=== PATIENT | male | born 1950 | race Caucasian/White ===

== ENCOUNTER 2024-07-02 15:55 | Inpatient (IN) ==
[2024-07-02] MEDS: ALBUT/IPRATROP 3MG/0.5MG NEB 3 ML VIAL NEB STA ×2 (16:22→17:39)
[2024-07-02 16:40] LABS: Basophils # (auto) 0.07 K/uL (0.00-0.20); Basophils % (auto) 0.4 %; Eosinophils # (auto) 0.16 K/uL (0.00-0.50); Hematocrit (blood only) 42.5 % (42.0-52.0); Hemoglobin 14.6 g/dl (14.0-18.0); Immature Granulocytes # (auto) 0.18 K/uL (0.01-0.20); Immature Granulocytes % (auto) 1.1 %; Lymphocytes # (auto) 2.56 K/uL (1.20-3.40); Lymphocytes % (auto) 15.5 %; Mean Corpuscular Hemoglobin 29.1 pg (25.0-34.0); Mean Corpuscular Hgb Conc 34.4 g/dL (32.0-36.0); Mean Corpuscular Volume 84.8 fL (80.0-100.0); Mean Platelet Volume 9.5 fL (9.4-12.4); Monocytes % (auto) 7.9 %; Neutrophils # (auto) 12.23 K/uL (1.40-6.50); Neutrophils % (auto) 74.1 %; Platelet Count 421 K/uL (130-400); RDW Coefficient of Variation 13.1 % (11.5-14.5); RDW Standard Deviation 40.4 fL (36.4-46.3); Red Blood Count 5.01 M/uL (4.70-6.10)
[2024-07-02 16:58] LABS: Albumin Globulin Ratio 0.9 (0.9-2); Albumin Level 3.8 gm/dl (3.4-5.0); BUN Creatinine Ratio 19.5 (10-20); Bilirubin,Total 0.7 mg/dl (0.2-1.0); Calcium 9.4 mg/dl (8.6-10.3); Creatinine Clr Calc Pharmacy 69.4 ml/min; Globulin 4.2 gm/dl (2.5-4.0); Potassium 4.1 mmol/L (3.5-5.1)
--- NOTE | 2024-07-02 16:58 | XRay Report ---
EXAM: Radiograph of the Chest 1 View INDICATION: Chest pain TECHNIQUE: Frontal view of the chest. COMPARISON: No relevant prior studies available. FINDINGS: Lungs and pleural spaces: There is generalized interstitial thickening with superimposed patchy groundglass infiltrates in both lungs particularly the upper lobes. No confluent consolidation. No pleural effusion or pneumothorax. Heart: Shape and configuration within normal limits allowing for technique. Mediastinum: Normal contour. Bones/joints: No fracture, erosion or dislocation. Soft tissues: No abnormality noted. No radiopaque foreign body noted. Tubes, lines and devices: Spinal stimulator terminates in the mid spine. Upper abdomen: No abnormality noted. IMPRESSION: Diffuse interstitial and groundglass infiltrates are nonspecific. Consider infectious pneumonitis including atypical and viral etiologies as well as developing alveolar edema. ACT 112: N/A Electronically signed by Eleonora Cerna 07-02-2024 4:58 PM
[2024-07-02 17:01] LABS: Troponin I High Sensitivity 5.3 pg/ml (0-20)
[2024-07-02] MEDS ORDERED: VANCOMYCIN CONSULT ACTIVE PRN ×2 (17:12→20:35)
[2024-07-02 17:13] LABS: INR 1.2 (0.9-1.1); Partial Thromboplastin Time 26 Seconds (21-31); Prothrombin Time 12.4 Seconds (9.0-12.0)
--- NOTE | 2024-07-02 17:17 | Emergency Department Note ---
Impression & Plan Pneumonia, Hypoxia ED Provider Note Diagnosis: Pneumonia, hypoxia Disposition: Admission CHIEF COMPLAINT: Recent pneumonia worsening symptoms HPI: Patient is a 73-year-old male presenting from home with worsening shortness of breath. Patient has been sick with productive cough for over 1 weeks time. Patient over the weekend went to outside emergency room diagnosed with pneumonia and started on oral antibiotics. Patient states that he has not been getting any better has been taking them as prescribed. Patient states he had a coughing fit that brought him to the ground because he became so short of breath. Patient denies active chest pain. Patient does not notice significant fevers. Patient denies any history of asthma or COPD and has been wheezing over the past day or 2. Patient states sick contacts with viral illnesses recently. Patient does not require oxygen at baseline and is requiring 2 L nasal cannula to keep him above 90% on my evaluation. PAST MEDICAL HISTORY: See Below PAST SURGICAL HISTORY: See Below SOCIAL HISTORY: See Below HOME MEDICATIONS: See Below ALLERGIES: See Below VITALS: See Below PHYSICAL EXAMINATION: GENERAL: Well appearing, well nourished, NAD, non-toxic. EYE EXAM: Normal conjunctiva. OROPHARYNX: Moist mucus membranes. Grossly normal dentition. NECK: Supple, LUNGS: Wheezing bilaterally HEART: NSR ABDOMEN: Abdomen soft, non-tender, normo-active bowel sounds, no masses, no rebound or guarding BACK: No CVA TTP. SKIN: No rashes and no bruising. UPPER EXTREMITIES: Upper extremities are grossly normal LOWER EXTREMITIES: Grossly normal, no edema. NEURO EXAM: A&O x3,, normal speech, moves all 4 extremities PSYCH: Cooperative MEDICAL DECISION MAKING: History obtained from: Patient, ER Course: Patient is a 73-year-old male presenting with complaint of cough and pneumonia for over 1 weeks time. Patient went to outside hospital emergency room multiple days prior and was started on Augmentin and doxycycline. Patient states that he has not been getting any better. Patient feels worsening shortness of breath. Patient requiring oxygen today which is not his baseline. Patient's EKG without signs of ischemia. Patient's chest x-ray shows pneumonia. Patient failed outpatient antibiotics and was started on broad-spectrum antibiotics here. Patient will be admitted for further treatment and evaluation. Labs (independently interpreted) are significant for: Leukocytosis Imaging results (independently interpreted): Chest x-ray with pneumonia EKG interpretation (independently interpreted): Normal sinus rhythm no ST segment elevation or depression Medications given: Cefepime, vancomycin, normal saline Consultants: Hospitalist Triage Nursing notes reviewed and agree them. Vital Signs: reviewed and remarkable for: Hypoxia Past Med/Surg History Problem List (Updated 07/02/24 @ 20:16 by Alex Dawn DO) Hypoxia (Acute) Pneumonia (Acute) Erectile dysfunction GERD with esophagitis Benign essential hypertension BPH associated with nocturia Right inguinal hernia Ventral hernia Insomnia (Acute) Sensorineural hearing loss of both ears Medical History Failed back surgical syndrome Surgical History S/P lumbar spinal arthrodesis Family History Mother Alzheimer disease Sister Cancer, Onset Age: 48 Father Deep vein thrombosis, Onset Age: 45 Pulmonary embolism Grandfather (Maternal) Sudden , Onset Age: 82 Grandmother (Maternal) Sudden , Onset Age: 50 Sister Alcoholism, Onset Age: 62 Social History Smoking Status: Never smoker Second Hand Exposure: No; Do You Dip or Chew Tobacco: No; Hx Alcohol Use: No Hx Substance Use: No Preferred Language: Andorran Communication Ability: Effective Hearing Ability: Use of Hearing Aid 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 marital status: Current Living Situation: Spouse Feels Safe at Home: Yes Childhood Exposure to Second-Hand Smoke: No Seatbelt Use: always Sunscreen Use: No Allergies Allergies Allergy/AdvReac Type Severity Reaction Status Date / Time No Known Allergies Allergy Unverified 07/02/24 14:54 Home Meds Home Medications Medication Instructions Recorded Confirmed tadalafil 5 mg tablet 5 mg PO DAILY PRN Other 07/02/24 07/02/24 tamsulosin 0.4 mg capsule 0.4 mg PO UD 07/02/24 07/02/24 Previous Rx's Medication Instructions Recorded magnesium glycinate 100 mg (as 100 mg PO .bedtime muscle cramps 03/11/24 glycinate) tablet (Mag Glycinate) #60 tabs amoxicillin 875 mg-potassium 1 tab PO BID 5 days #10 tabs 06/29/24 clavulanate 125 mg tablet doxycycline hyclate 100 mg capsule 100 mg PO BID 5 days #10 caps 06/29/24 Results & Data (ED) Vital Signs Vital Signs - 24 hr 07/02/24 16:08 07/02/24 16:08 07/02/24 16:31 Temperature 36.8 C Temperature Source Temporal Artery Scan Pulse Rate 81 Pulse Rate [Right Finger] Pulse Rate from SpO2 Sensor Respiratory Rate 22 Respiratory Effort / Characteristics Labored Non-Labored Respiratory Depth Normal Blood Pressure 140/83 Blood Pressure [Right Arm] Blood Pressure Mean 102 Blood Pressure Mean [Right Arm] Pulse Oximetry 91 91 Oxygen Delivery Method Room Air Room Air Oxygen Flow Rate Sepsis Recent Fever Within 48 Hours No Sepsis New/Unexplained Change in Mental Status No Sepsis Action Taken by Nursing No Action Required Oxygen Flow Rate - Titration Pulse Oximetry Post Tiitration 07/02/24 16:36 07/02/24 16:46 07/02/24 16:54 Temperature Temperature Source Pulse Rate 81 81 Pulse Rate [Right Finger] Pulse Rate from SpO2 Sensor 81 81 Respiratory Rate 13 30 H Respiratory Effort / Characteristics Respiratory Depth Blood Pressure 126/70 155/96 H Blood Pressure [Right Arm] Blood Pressure Mean 88 115 Blood Pressure Mean [Right Arm] Pulse Oximetry 96 89 L 91 Oxygen Delivery Method Room Air Oxygen Flow Rate 0 Sepsis Recent Fever Within 48 Hours Sepsis New/Unexplained Change in Mental Status Sepsis Action Taken by Nursing Oxygen Flow Rate - Titration 2 Pulse Oximetry Post Tiitration 95 07/02/24 17:06 07/02/24 17:33 07/02/24 18:00 Temperature Temperature Source Pulse Rate 80 74 Pulse Rate [Right Finger] 100 H Pulse Rate from SpO2 Sensor 81 74 Respiratory Rate 19 19 20 Respiratory Effort / Characteristics Respiratory Depth Blood Pressure 155/96 H 133/79 Blood Pressure [Right Arm] 121/98 Blood Pressure Mean 115 97 Blood Pressure Mean [Right Arm] 105 Pulse Oximetry 91 91 94 Oxygen Delivery Method Oxygen Flow Rate Sepsis Recent Fever Within 48 Hours Sepsis New/Unexplained Change in Mental Status Sepsis Action Taken by Nursing Oxygen Flow Rate - Titration Pulse Oximetry Post Tiitration 07/02/24 18:15 07/02/24 18:54 07/02/24 19:00 Temperature Temperature Source Pulse Rate 90 91 H 92 H Pulse Rate [Right Finger] Pulse Rate from SpO2 Sensor 90 96 H Respiratory Rate 27 H 27 H Respiratory Effort / Characteristics Respiratory Depth Blood Pressure 121/98 156/91 H Blood Pressure [Right Arm] Blood Pressure Mean 105 112 Blood Pressure Mean [Right Arm] Pulse Oximetry 88 L 91 Oxygen Delivery Method Oxygen Flow Rate Sepsis Recent Fever Within 48 Hours Sepsis New/Unexplained Change in Mental Status Sepsis Action Taken by Nursing Oxygen Flow Rate - Titration Pulse Oximetry Post Tiitration Laboratory Data 07/02/24 16:19 07/02/24 16:19 Lab Results 07/02/24 07/02/24 07/02/24 Range/Units 16:19 17:32 17:33 WBC 16.50 H (4.8-10.8) K/ul RBC 5.01 (4.70-6.10) M/uL Hgb 14.6 (14.0-18.0) g/dl Hct 42.5 (42.0-52.0) % MCV 84.8 (80.0-100.0) fL MCH 29.1 (25.0-34.0) pg MCHC 34.4 (32.0-36.0) g/dL RDW Std Deviation 40.4 (36.4-46.3) fL RDW Coeff of Susan 13.1 (11.5-14.5) % Plt Count 421 H (130-400) K/uL MPV 9.5 (9.4-12.4) fL Immature Gran % (Auto) 1.1 % Neut % (Auto) 74.1 % Lymph % (Auto) 15.5 % [place] % (Auto) 7.9 % Eos % (Auto) 1.0 % Baso % (Auto) 0.4 % Neut # (Auto) 12.23 H (1.40-6.50) K/uL Lymph # (Auto) 2.56 (1.20-3.40) K/uL [place] # (Auto) 1.30 H (0.11-0.59) K/uL Eos # (Auto) 0.16 (0.00-0.50) K/uL Baso # (Auto) 0.07 (0.00-0.20) K/uL Immature Gran # (Auto) 0.18 (0.01-0.20) K/uL PT 12.4 H (9.0-12.0) Seconds INR 1.2 H (0.9-1.1) APTT 26 (21-31) Seconds PTT Ratio 1.0 Sodium 136 (136-145) mmol/L Potassium 4.1 (3.5-5.1) mmol/L Chloride 102 (98-107) mmol/L Carbon Dioxide 25 (21-32) mmol/L Anion Gap 9 (3-11) BUN 22 (6-23) mg/dl Creatinine 1.13 (0.6-1.4) mg/dl Est Cr Clr Drug Dosing 69.4 ml/min eGFR 69.06 BUN/Creatinine Ratio 19.5 (10-20) Glucose 112 H (70-99(Fasting)) mg/dl Lactate (0.4-2.0) mmol/L Calcium 9.4 (8.6-10.3) mg/dl Total Bilirubin 0.7 (0.2-1.0) mg/dl AST 27 (13-39) U/L ALT 37 (7-52) U/L Alkaline Phosphatase 53 (34-104) U/L Troponin I High Sens 5.3 (0-20) pg/ml B-Natriuretic Peptide 48 (0-100) pg/ml Total Protein 8.0 (6.0-8.3) gm/dl Albumin 3.8 (3.4-5.0) gm/dl Globulin 4.2 H (2.5-4.0) gm/dl Albumin/Globulin Ratio 0.9 (0.9-2) Adenovirus (PCR) Not Detected (NotDetected) B. pertussis DNA (PCR) Not Detected (NotDetected) B.parapertussis DNA PCR Not Detected (NotDetected) C. pneumoniae DNA (PCR) Not Detected (NotDetected) Coronavirus OC43 (PCR) Not Detected (NotDetected) Coronavirus HKU1 (PCR) Not Detected (NotDetected) Coronavirus 229E (PCR) Not Detected (NotDetected) SARS-CoV-2 (PCR) Not Detected (NotDetected) Coronavirus NL63 (PCR) Not Detected (NotDetected) Human Metapneumovir PCR Not Detected (NotDetected) Influenza Type A (PCR) Not Detected (NotDetected) Influenza Type B (PCR) Not Detected (NotDetected) M. pneumoniae (PCR) Not Detected (NotDetected) Parainfluenza 1 (PCR) Not Detected (NotDetected) Parainfluenza 2 (PCR) Not Detected (NotDetected) Parainfluenza 3 (PCR) Not Detected (NotDetected) Parainfluenza 4 (PCR) Not Detected (NotDetected) RSV (PCR) Not Detected (NotDetected) Entero/Rhino (PCR) Not Detected (NotDetected) 07/02/24 Range/Units 17:44 WBC (4.8-10.8) K/ul RBC (4.70-6.10) M/uL Hgb (14.0-18.0) g/dl Hct (42.0-52.0) % MCV (80.0-100.0) fL MCH (25.0-34.0) pg MCHC (32.0-36.0) g/dL RDW Std Deviation (36.4-46.3) fL RDW Coeff of Susan (11.5-14.5) % Plt Count (130-400) K/uL MPV (9.4-12.4) fL Immature Gran % (Auto) % Neut % (Auto) % Lymph % (Auto) % [place] % (Auto) % Eos % (Auto) % Baso % (Auto) % Neut # (Auto) (1.40-6.50) K/uL Lymph # (Auto) (1.20-3.40) K/uL [place] # (Auto) (0.11-0.59) K/uL Eos # (Auto) (0.00-0.50) K/uL Baso # (Auto) (0.00-0.20) K/uL Immature Gran # (Auto) (0.01-0.20) K/uL PT (9.0-12.0) Seconds INR (0.9-1.1) APTT (21-31) Seconds PTT Ratio Sodium (136-145) mmol/L Potassium (3.5-5.1) mmol/L Chloride (98-107) mmol/L Carbon Dioxide (21-32) mmol/L Anion Gap (3-11) BUN (6-23) mg/dl Creatinine (0.6-1.4) mg/dl Est Cr Clr Drug Dosing ml/min eGFR BUN/Creatinine Ratio (10-20) Glucose (70-99(Fasting)) mg/dl Lactate 1.1 (0.4-2.0) mmol/L Calcium (8.6-10.3) mg/dl Total Bilirubin (0.2-1.0) mg/dl AST (13-39) U/L ALT (7-52) U/L Alkaline Phosphatase (34-104) U/L Troponin I High Sens (0-20) pg/ml B-Natriuretic Peptide (0-100) pg/ml Total Protein (6.0-8.3) gm/dl Albumin (3.4-5.0) gm/dl Globulin (2.5-4.0) gm/dl Albumin/Globulin Ratio (0.9-2) Adenovirus (PCR) (NotDetected) B. pertussis DNA (PCR) (NotDetected) B.parapertussis DNA PCR (NotDetected) C. pneumoniae DNA (PCR) (NotDetected) Coronavirus OC43 (PCR) (NotDetected) Coronavirus HKU1 (PCR) (NotDetected) Coronavirus 229E (PCR) (NotDetected) SARS-CoV-2 (PCR) (NotDetected) Coronavirus NL63 (PCR) (NotDetected) Human Metapneumovir PCR (NotDetected) Influenza Type A (PCR) (NotDetected) Influenza Type B (PCR) (NotDetected) M. pneumoniae (PCR) (NotDetected) Parainfluenza 1 (PCR) (NotDetected) Parainfluenza 2 (PCR) (NotDetected) Parainfluenza 3 (PCR) (NotDetected) Parainfluenza 4 (PCR) (NotDetected) RSV (PCR) (NotDetected) Entero/Rhino (PCR) (NotDetected) Administered Medications Discontinued Medications Albuterol (Albut/Ipratrop 3mg/0.5mg Neb 3 Ml Vial) 3 ml NEB NOW STA; Protocol Stop: 07/02/24 16:14 Last Admin: 07/02/24 16:22 Dose: 3 ml Documented By: FITO Albuterol (Albut/Ipratrop 3mg/0.5mg Neb 3 Ml Vial) 3 ml NEB NOW STA; Protocol Stop: 07/02/24 17:13 Last Admin: 07/02/24 17:39 Dose: 3 ml Documented By: STEVE Cefepime HCl (Maxipime 2000mg) 2,000 mg in 20 mls @ 5 mls/min IV NOW STA; Protocol Stop: 07/02/24 17:15 Last Admin: 07/02/24 17:48 Dose: 5 mls/min Documented By: STEVE Vancomycin HCl 2,000 mg/ (Sodium Chloride) 540 mls @ 200 mls/hr IV NOW ONE Stop: 07/02/24 19:53 Last Admin: 07/02/24 19:22 Dose: 200 mls/hr Documented By: STEVE Methylprednisolone (Methylprednisolone 125 Mg/2 Ml Vial) 125 mg IV NOW STA Stop: 07/02/24 17:13 Last Admin: 07/02/24 17:39 Dose: 125 mg Documented By: STEVE Imaging Data Radiologist's Impression: Chest X-Ray 07/02/24 16:13 EXAM: Radiograph of the Chest 1 View INDICATION: Chest pain TECHNIQUE: Frontal view of the chest. COMPARISON: No relevant prior studies available. FINDINGS: Lungs and pleural spaces: There is generalized interstitial thickening with superimposed patchy groundglass infiltrates in both lungs particularly the upper lobes. No confluent consolidation. No pleural effusion or pneumothorax. Heart: Shape and configuration within normal limits allowing for technique. Mediastinum: Normal contour. Bones/joints: No fracture, erosion or dislocation. Soft tissues: No abnormality noted. No radiopaque foreign body noted. Tubes, lines and devices: Spinal stimulator terminates in the mid spine. Upper abdomen: No abnormality noted. IMPRESSION: Diffuse interstitial and groundglass infiltrates are nonspecific. Consider infectious pneumonitis including atypical and viral etiologies as well as developing alveolar edema. ACT 112: N/A Electronically signed by Eleonora Cerna 07-02-2024 4:58 PM Discharge Plan Visit Data Chief Complaint: Respiratory Problems Stated Complaint: PNEUMONIA, DOC. CALLED ED Provider: Alex Dawn Discharge Problem: Pneumonia, Hypoxia Forms Stand Alone Forms: My [facility] [place] [employer] Prescriptions Prescriptions: No Action amoxicillin-pot clavulanate 875-125 mg tablet 1 tab PO BID 5 Days Qty: 10 0RF Rx Instructions: [facility] ER 06/27-06/28/24 doxycycline hyclate 100 mg capsule 100 mg PO BID 5 Days Qty: 10 0RF Rx Instructions: [facility] ER 06/27-06/28/24 Mag Glycinate 100 mg tablet 100 mg PO .bedtime Qty: 60 1RF Rx Instructions: otc unable to verify tamsulosin 0.4 mg capsule 0.4 mg PO UD Rx Instructions: 0.4 mg po daily. last filled 04/30 30 day supply tadalafil 5 mg tablet 5 mg PO DAILY PRN (Reason: Other) Rx Instructions: 5 mg orally w intercourse. May repeat if ineffective; last filled 03/12 36 day supply Referrals Referrals: Iraj Nelson MD [Physician] -
[2024-07-02] MEDS: methylPREDNISolone 125 MG/2 ML VIAL IV STA (17:39)
[2024-07-02] MEDS: CEFEPIME 2000MG 2,000 MG/20 ML SYR IV STA (17:48)
[2024-07-02 18:33] LABS: Adenovirus PCR Not Detected (NotDetected); Bordetella parapertussis PCR Not Detected (NotDetected); Bordetella pertussis PCR Not Detected (NotDetected); Chlamydia pneumoniae PCR Not Detected (NotDetected); Coronavirus 229E PCR Not Detected (NotDetected); Coronavirus CoV-2 (COVID19)PCR Not Detected (NotDetected); Coronavirus HKU1 PCR Not Detected (NotDetected); Coronavirus NL63 PCR Not Detected (NotDetected); Coronavirus OC43PCR Not Detected (NotDetected); Human Metapneumovirus PCR Not Detected (NotDetected); Influenza A PCR Not Detected (NotDetected); Influenza B PCR Not Detected (NotDetected); Mycoplasma pneumoniae PCR Not Detected (NotDetected); Parainfluenza Virus 1 PCR Not Detected (NotDetected); Parainfluenza Virus 2 PCR Not Detected (NotDetected); Parainfluenza Virus 3 PCR Not Detected (NotDetected); Parainfluenza Virus 4 PCR Not Detected (NotDetected); Respiratory Syncytial VirusPCR Not Detected (NotDetected); Rhinovirus/Enterovirus PCR Not Detected (NotDetected)
[2024-07-02] MEDS: VANCOMYCIN HCL 2,000 MG in SODIUM CHLORIDE 0.9% 500 ML IV ONE (19:22)
[2024-07-02] MEDS ORDERED: ACETAMINOPHEN 325 MG TAB PO PRN (20:40)
[2024-07-02] MEDS ORDERED: ALBUTEROL 0.083% NEBU SOLN 3 ML VIAL NEB PRN (20:45)
--- NOTE | 2024-07-02 20:53 | History & Physical Report ---
Date of Service July 02, 2024 Assessment & Plan (1) Pneumonia: Plan: Assessment: 1. Bilateral multifocal pneumonia by chest x-ray. Failed outpatient antibiotic treatment with doxycycline and Augmentin. Sputum cultures ordered. Noncontrast CT of the chest has been ordered to further delineate the patient's pulmonary pathology given his 2-week illness and felt improvement. This CAT scan result is pending at the time of this dictation. Will continue vancomycin and cefepime. Nebulizer treatments. Respiratory bio fire respiratory viral panel was negative. 2. Hypoxemia. 88% on room air. Now 91% on 2 L. 3. BPH. Continue home medication. 4. Leukocytosis secondary to infectious process. Repeat in the a.m. and monitor. 5. Erectile dysfunction by history. 6. Borderline hypertension this evening 156/91. I do not appreciate where he is treated for this chronically. Will monitor and introduce oral medication if necessary. 7. GERD by history. 8. History of presbycusis. Stable. Plan: As discussed above. Please refer to orders for further planning. History of Present Illness Chief Complaint: Shortness of breath, pneumonia, failed outpatient antibiotic treatment. Primary Care Provider: MARIA GUADALUPE Rao This is a pleasant 73-year-old male who was in the ER approximately a week ago. Diagnosed with pneumonia. Started on Augmentin and doxycycline. He has not improved in fact been getting worse. Saw his PCP today with increasing shortness of breath and productive cough. He presented the ER today for further evaluation and treatment. Laboratory studies showed a white count of 16,000. Other labs are fairly unremarkable. Respiratory viral bio fire panel was negative. Chest x-ray showed multifocal pneumonia. Course emergency department she is IV vancomycin IV cefepime. We are notified to meet the patient further evaluation and treatment for his community-acquired pneumonia with failed outpatient oral antibiotic treatment. Allergies Allergy/AdvReac Type Severity Reaction Status Date / Time No Known Allergies Allergy Unverified 07/02/24 14:54 Home Medications Medication Instructions Recorded Confirmed Type magnesium glycinate 100 mg (as 100 mg PO .bedtime muscle cramps 03/11/24 07/02/24 Rx glycinate) tablet (Mag Glycinate) #60 tabs amoxicillin 875 mg-potassium 1 tab PO BID 5 days #10 tabs 06/29/24 07/02/24 Rx clavulanate 125 mg tablet doxycycline hyclate 100 mg capsule 100 mg PO BID 5 days #10 caps 06/29/24 07/02/24 Rx tadalafil 5 mg tablet 5 mg PO DAILY PRN Other 07/02/24 07/02/24 History tamsulosin 0.4 mg capsule 0.4 mg PO UD 07/02/24 07/02/24 History Past Med/Surg History Problem List (Updated 07/02/24 @ 20:16 by Alex Dawn DO) Hypoxia (Acute) Pneumonia (Acute) Erectile dysfunction GERD with esophagitis Benign essential hypertension BPH associated with nocturia Right inguinal hernia Ventral hernia Insomnia (Acute) Sensorineural hearing loss of both ears Medical History Failed back surgical syndrome Surgical History S/P lumbar spinal arthrodesis Family History Mother Alzheimer disease Sister Cancer, Onset Age: 48 Father Deep vein thrombosis, Onset Age: 45 Pulmonary embolism Grandfather (Maternal) Sudden , Onset Age: 82 Grandmother (Maternal) Sudden , Onset Age: 50 Sister Alcoholism, Onset Age: 62 Social History Smoking Status: Never smoker Second Hand Exposure: No; Do You Dip or Chew Tobacco: No; Hx Alcohol Use: No Hx Substance Use: No Preferred Language: Welsh Communication Ability: Effective Hearing Ability: Use of Hearing Aid 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 Physical Exam Physical Exam: In General: In general very pleasant 73-year-old male who is alert and oriented x 3 at the time my exam he is accompanied by his at the time my examination. 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 His cough and shortness of breath and breathing has worsened as described above. He is comfortable on his 2 L of oxygen nasal cannula at this time. HEENT: Normocephalic atraumatic pupils are equal round and reactive to light bilaterally. No scleral icterus no conjunctival injection external auditory canals are patent septum is in the midline nose is without discharge oral mucosa is pink and moist without lesion. NECK: Supple no rigidity no lymphadenopathy no thyromegaly no carotid bruits no JVD no masses. HEART: Regular rate and rhythm I do not appreciate any ectopy or rub. No murmur. LUNGS: Coarse bilaterally with bilateral rhonchi and bilateral expiratory wheezing. ABDOMEN: Soft nontender, no rebound, no peritoneal signs, positive bowel sounds, no appreciable organomegaly. EXTREMITIES: Intact, no peripheral cyanosis, clubbing or edema. Strength is 5 out of 5 in extremities x4. NEUROLOGICAL: Other than severe presbycusis, cranial nerves II through XII are grossly intact with no focal deficit elicited upon examination. Results & Data Results & Data Vital Signs (Past 12 Hours) Vital Signs Temp Pulse Pulse Resp BP BP Pulse Ox 07/02/24 19:00 92 H 27 H 156/91 H 91 07/02/24 18:54 91 H 07/02/24 18:15 90 27 H 121/98 88 L 07/02/24 18:00 100 H 20 121/98 94 07/02/24 17:33 74 19 133/79 91 07/02/24 17:06 80 19 155/96 H 91 07/02/24 16:54 81 30 H 155/96 H 91 07/02/24 16:46 89 L 07/02/24 16:36 81 13 126/70 96 07/02/24 16:31 91 07/02/24 16:08 36.8 C 81 22 140/83 91 O2 Del Method O2 Flow Rate 07/02/24 19:00 07/02/24 18:54 07/02/24 18:15 07/02/24 18:00 07/02/24 17:33 07/02/24 17:06 07/02/24 16:54 07/02/24 16:46 Room Air 0 07/02/24 16:36 07/02/24 16:31 Room Air 07/02/24 16:08 Room Air Code Status & VTE Plan Code Status CODE STATUS: Full code. I personally discussed with patient at bedside. VTE Prophylaxis Plan VTE Prophylaxis will be ordered: Yes PG Care Time/CCT Total # of Minutes Spent Total Time Spent with Patient: Total time spent is greater than 50% in coordination of care (as documented) at patient's floor/unit and/or counseling patient: Coding Level of Care Code 70072 INT INP/OBS CARE 3/75MIN Diagnoses Pneumonia J18.9
--- NOTE | 2024-07-02 23:03 | CT Scan Report ---
Exam(s): CT CHEST Without Contrast EXAM: CT Chest Without Intravenous Contrast CLINICAL HISTORY: Reason for exam: Multifocal pneumonia with failed antibiotic treatment. TECHNIQUE: Axial computed tomography images of the chest without intravenous contrast. CTDI is 23.78 mGy and DLP is 749.07 mGy-cm. Automated exposure control was utilized for the study. A dose lowering technique was utilized adhering to the principles of ALARA. COMPARISON: No relevant prior studies available. FINDINGS: Lungs: Extensive bilateral pulmonary infiltration, predominantly in the upper lung chapa, worse on the right. No mass. Pleural space: Unremarkable. No pneumothorax. No significant effusion. Heart: Unremarkable. No cardiomegaly. No significant pericardial effusion. No significant coronary artery calcifications. Mediastinum: Calcified mediastinal and hilar lymph nodes bilaterally. A small hiatus hernia. Bones/joints: Unremarkable. No acute fracture. No dislocation. Soft tissues: Unremarkable. Vasculature: Unremarkable. No thoracic aortic aneurysm. Lymph nodes: See above. Gallbladder and bile ducts: Cholecystectomy. IMPRESSION: Extensive bilateral pulmonary infiltrates, worse on the right. Bilateral pneumonia. Electronically signed by: Bobby Lamar MD 07/02/24 23:02 PM
[2024-07-03] MEDS: CEFEPIME 2000MG 2,000 MG/20 ML SYR IV SCH (02:30)
[2024-07-03] MEDS: VANCOMYCIN HCL 1,000 MG/270 ML BAG IV SCH (05:42)
[2024-07-03 06:22] LABS: Basophils # (auto) 0.03 K/uL (0.00-0.20); Basophils % (auto) 0.2 %; Hematocrit (blood only) 39.1 % (42.0-52.0); Hemoglobin 13.5 g/dl (14.0-18.0); Immature Granulocytes # (auto) 0.21 K/uL (0.01-0.20); Immature Granulocytes % (auto) 1.7 %; Lymphocytes # (auto) 1.19 K/uL (1.20-3.40); Lymphocytes % (auto) 9.7 %; Mean Corpuscular Hemoglobin 29.2 pg (25.0-34.0); Mean Corpuscular Hgb Conc 34.5 g/dL (32.0-36.0); Mean Corpuscular Volume 84.6 fL (80.0-100.0); Mean Platelet Volume 9.9 fL (9.4-12.4); Monocytes # (auto) 0.41 K/uL (0.11-0.59); Monocytes % (auto) 3.3 %; Neutrophils # (auto) 10.42 K/uL (1.40-6.50); Neutrophils % (auto) 85.1 %; Platelet Count 394 K/uL (130-400); RDW Coefficient of Variation 12.8 % (11.5-14.5); RDW Standard Deviation 39.3 fL (36.4-46.3); Red Blood Count 4.62 M/uL (4.70-6.10); White Blood Count 12.26 K/ul (4.8-10.8)
[2024-07-03 06:39] LABS: Albumin Globulin Ratio 0.9 (0.9-2); Albumin Level 3.5 gm/dl (3.4-5.0); BUN Creatinine Ratio 25.3 (10-20); Bilirubin,Total 0.6 mg/dl (0.2-1.0); Calcium 8.9 mg/dl (8.6-10.3); Chol HDL Ratio 4.2 (0-5); Creatinine Clr Calc Pharmacy 86.1 ml/min; Globulin 3.7 gm/dl (2.5-4.0); Magnesium 2.1 mg/dl (1.7-2.4); Potassium 4.3 mmol/L (3.5-5.1); Total Protein 7.2 gm/dl (6.0-8.3)
[2024-07-03 06:54] LABS: Thyroid Stimulating Hormone 0.818 uIu/ml (0.300-4.500)
[2024-07-03] MEDS: ALBUT/IPRATROP 3MG/0.5MG NEB 3 ML VIAL NEB SCH (08:19)
[2024-07-03] MEDS: TAMSULOSIN HCL 0.4 MG CAP PO SCH (10:24)
--- NOTE | 2024-07-03 11:45 | Hospitalist Progress Note ---
Date of Service July 03, 2024 Assessment & Plan (1) Pneumonia: Plan: 1. Bilateral multifocal pneumonia by chest x-ray. Patient presents with worsening SOB and cough, Failed outpatient antibiotic treatment with doxycycline and Augmentin. Sputum cultures ordered. Noncontrast CT of the chest CT shows extensive bilateral pulmonary infiltrates, worse on the right side Will continue vancomycin and cefepime. Nebulizer treatments. Respiratory bio fire respiratory viral panel was negative. 2. Hypoxemia. Due to multifocal PNA 88% on room air. Now 91% on 2 L. Wean oxygen as tolerated chronic conditions: 3. BPH. Continue home medication. 5. Erectile dysfunction by history. 6. Borderline hypertension 7. GERD by history. 8. History of presbycusis. Stable. Plan: Continue to monitor in the hospital Admission and Anticipated Discharge Date Admission Date: July 02, 2024 Subjective Patient seen and examined today, says the shortness of breath, cough just only marginally better Review of Systems Review of Systems: All systems reviewed are negative, apart from the ones contained in the history. Physical Exam Physical Exam: The patient is awake, alert and oriented 3, well developed and well nourished, normocephalic and atraumatic, lying in bed and in no acute distress. HEENT--PERRL, EOMI, mucous membranes and oropharynx mildly dry Neck--supple. No JVD. No bruits. Thyroid normal, trachea midline, no adenopathy. Heart--normal S1 and S2. No murmurs, rubs or gallops. Lungs--clear bilaterally, no respiratory distress, no accessory muscle use. Abdomen--normal bowel sounds and soft. Extremities--no cyanosis or clubbing. No edema. Dermatologic--normal skin turgor, normal color, no abnormal lymph nodes, no rash. Neurologic--cranial nerves II through XII grossly intact. Rheumatologic--normal range of motion. Psychiatric--normal affect. Results & Data Results & Data Vital Signs (Past 12 Hours) Vital Signs Temp Pulse Pulse Resp BP BP Pulse Ox 07/03/24 11:14 97.3 F L 76 20 126/80 90 07/03/24 10:55 68 18 90 07/03/24 08:30 97.3 F L 69 18 134/80 92 07/03/24 08:19 70 17 86 L 07/03/24 08:00 69 07/03/24 02:10 07/03/24 02:05 69 07/03/24 01:45 97.3 F L 76 18 139/53 L 93 07/03/24 01:00 98.1 F 73 23 155/93 H 92 07/03/24 00:00 73 25 H 120/79 93 O2 Del Method O2 Flow Rate 07/03/24 11:14 Nasal Cannula 3 07/03/24 10:55 Nasal Cannula 2 07/03/24 08:30 Nasal Cannula 3 07/03/24 08:19 Room Air 07/03/24 08:00 07/03/24 02:10 Nasal Cannula 3 07/03/24 02:05 07/03/24 01:45 Nasal Cannula 3 07/03/24 01:00 Nasal Cannula 3 07/03/24 00:00 Nasal Cannula 3 PG Care Time/CCT Total # of Minutes Spent Total Time Spent with Patient: Total time spent is greater than 50% in coordination of care (as documented) at patient's floor/unit and/or counseling patient: Coding Level of Care Code 17478 SUB INP/OBS CARE 2/35MIN Diagnoses Pneumonia J18.9 Time Spent (min) 35
[2024-07-03] MEDS: DOXYCYCLINE HYCLATE 100 MG in D5W MINI-B 100 ML (Q12H) IV SCH (15:41)
--- NOTE | 2024-07-03 21:51 | Electrocardiogram Report ---
Test Reason : Blood Pressure : */* mmHG Vent. Rate : 82 BPM Atrial Rate : 82 BPM P-R Int : 150 ms QRS Dur : 98 ms QT Int : 392 ms P-R-T Axes : 57 1 46 degrees QTcB Int : 457 ms Normal sinus rhythm Normal ECG No previous ECGs available Confirmed by Jesu Reyna ([id number] on 07/03/2024 9:51:07 PM Referred By: Confirmed By: Jesu Reyna
--- NOTE | 2024-07-04 10:15 | Hospitalist Progress Note ---
Date of Service July 04, 2024 Assessment & Plan (1) Pneumonia: Plan: 1. Bilateral multifocal pneumonia by chest x-ray. Patient presents with worsening SOB and cough, Failed outpatient antibiotic treatment with doxycycline and Augmentin. Sputum cultures ordered. Noncontrast CT of the chest CT shows extensive bilateral pulmonary infiltrates, worse on the right side MRSA nares negative, will stop vancomycin Will continue cefepime and Doxycycline Nebulizer treatments. Respiratory bio fire respiratory viral panel was negative. 2. Hypoxemia. Due to multifocal PNA 88% on room air. Now 91% on 3 L. Wean oxygen as tolerated chronic conditions: 3. BPH. Continue home medication. 5. Erectile dysfunction by history. 6. Borderline hypertension 7. GERD by history. 8. History of presbycusis. Stable. Plan: Continue to monitor in the hospital, hopefully d/c in the next 48 hrs Admission and Anticipated Discharge Date Admission Date: July 02, 2024 Subjective Patient seen and examined today, says the shortness of breath, cough just only marginally better Review of Systems Review of Systems: All systems reviewed are negative, apart from the ones contained in the history. Physical Exam Physical Exam: The patient is awake, alert and oriented 3, well developed and well nourished, normocephalic and atraumatic, lying in bed and in no acute distress. HEENT--PERRL, EOMI, mucous membranes and oropharynx mildly dry Neck--supple. No JVD. No bruits. Thyroid normal, trachea midline, no adenopathy. Heart--normal S1 and S2. No murmurs, rubs or gallops. Lungs--clear bilaterally, no respiratory distress, no accessory muscle use. Abdomen--normal bowel sounds and soft. Extremities--no cyanosis or clubbing. No edema. Dermatologic--normal skin turgor, normal color, no abnormal lymph nodes, no rash. Neurologic--cranial nerves II through XII grossly intact. Rheumatologic--normal range of motion. Psychiatric--normal affect. Results & Data Results & Data Vital Signs (Past 12 Hours) Vital Signs Temp Pulse Pulse Resp BP Pulse Ox O2 Del Method 07/04/24 08:27 97.3 F L 72 15 133/80 92 Nasal Cannula 07/04/24 08:17 Nasal Cannula 07/04/24 07:20 57 L 07/04/24 07:13 73 20 89 L Nasal Cannula 07/04/24 03:57 97.3 F L 70 16 136/84 92 Nasal Cannula 07/03/24 23:19 97.5 F L 73 18 141/98 H 91 Nasal Cannula O2 Flow Rate 07/04/24 08:27 3 07/04/24 08:17 2 07/04/24 07:20 07/04/24 07:13 2 07/04/24 03:57 3 07/03/24 23:19 3 PG Care Time/CCT Total # of Minutes Spent Total Time Spent with Patient: Total time spent is greater than 50% in coordination of care (as documented) at patient's floor/unit and/or counseling patient: Coding Level of Care Code 75625 SUB INP/OBS CARE 2/35MIN Diagnoses Pneumonia J18.9 Time Spent (min) 35
--- NOTE | 2024-07-04 13:14 | Electrocardiogram Report ---
Test Reason : Blood Pressure : */* mmHG Vent. Rate : 75 BPM Atrial Rate : 75 BPM P-R Int : 156 ms QRS Dur : 106 ms QT Int : 404 ms P-R-T Axes : 41 36 39 degrees QTcB Int : 451 ms Normal sinus rhythm Nonspecific ST abnormality Abnormal ECG When compared with ECG of 02-Jul-2024 16:41, No significant change was found Confirmed by Devonte Mayo ([id number] on 07/04/2024 1:14:34 PM Referred By: Nuha Sotelo Confirmed By: Devonte Mayo
[2024-07-05] MEDS ORDERED: VANCOMYCIN LEVEL ONE (05:30)
[2024-07-05 07:45] LABS: Hematocrit (blood only) 41.5 % (42.0-52.0); Hemoglobin 13.7 g/dl (14.0-18.0); Mean Corpuscular Hemoglobin 28.7 pg (25.0-34.0); Mean Corpuscular Volume 86.8 fL (80.0-100.0); Mean Platelet Volume 9.6 fL (9.4-12.4); Platelet Count 405 K/uL (130-400); RDW Coefficient of Variation 13.3 % (11.5-14.5); RDW Standard Deviation 41.9 fL (36.4-46.3); Red Blood Count 4.78 M/uL (4.70-6.10); White Blood Count 10.06 K/ul (4.8-10.8)
[2024-07-05 07:58] LABS: BUN Creatinine Ratio 27.6 (10-20); Calcium 8.8 mg/dl (8.6-10.3); Creatinine Clr Calc Pharmacy 74.6 ml/min
--- NOTE | 2024-07-05 11:33 | Hospitalist Progress Note ---
Date of Service July 05, 2024 Assessment & Plan (1) Pneumonia: Plan: 1. Bilateral multifocal pneumonia by chest x-ray. Patient presents with worsening SOB and cough, Failed outpatient antibiotic treatment with doxycycline and Augmentin. Sputum cultures ordered. Noncontrast CT of the chest CT shows extensive bilateral pulmonary infiltrates, worse on the right side MRSA nares negative, will stop vancomycin Will continue cefepime and Doxycycline patient clinically much improved Continue Nebulizer treatments. Respiratory bio fire respiratory viral panel was negative. 2. Hypoxemia. Due to multifocal PNA Now resolved, saturating well on room air chronic conditions: 3. BPH. Continue home medication. 5. Erectile dysfunction by history. 6. Borderline hypertension 7. GERD by history. 8. History of presbycusis. Stable. Plan: Continue to monitor in the hospital, hopefully d/c in the next 24 hrs Admission and Anticipated Discharge Date Admission Date: July 02, 2024 Subjective Patient seen and examined today, says the shortness of breath is better Review of Systems Review of Systems: All systems reviewed are negative, apart from the ones contained in the history. Physical Exam Physical Exam: The patient is awake, alert and oriented 3, well developed and well nourished, normocephalic and atraumatic, lying in bed and in no acute distress. HEENT--PERRL, EOMI, mucous membranes and oropharynx mildly dry Neck--supple. No JVD. No bruits. Thyroid normal, trachea midline, no adenopathy. Heart--normal S1 and S2. No murmurs, rubs or gallops. Lungs--clear bilaterally, no respiratory distress, no accessory muscle use. Abdomen--normal bowel sounds and soft. Extremities--no cyanosis or clubbing. No edema. Dermatologic--normal skin turgor, normal color, no abnormal lymph nodes, no rash. Neurologic--cranial nerves II through XII grossly intact. Rheumatologic--normal range of motion. Psychiatric--normal affect. Results & Data Results & Data Vital Signs (Past 12 Hours) Vital Signs Temp Pulse Pulse Resp BP Pulse Ox O2 Del Method 07/05/24 11:08 83 20 91 Room Air 07/05/24 08:21 97.5 F L 69 15 146/80 H 97 Nasal Cannula 07/05/24 07:37 69 20 91 Nasal Cannula 07/05/24 07:32 Nasal Cannula 07/05/24 07:08 71 07/05/24 03:33 97.3 F L 64 18 117/73 93 Nasal Cannula O2 Flow Rate 07/05/24 11:08 07/05/24 08:21 1 07/05/24 07:37 1 07/05/24 07:32 2 07/05/24 07:08 07/05/24 03:33 2 PG Care Time/CCT Total # of Minutes Spent Total Time Spent with Patient: Total time spent is greater than 50% in coordination of care (as documented) at patient's floor/unit and/or counseling patient: Coding Level of Care Code 35064 SUB INP/OBS CARE 2/35MIN Diagnoses Pneumonia J18.9 Time Spent (min) 35
[2024-07-05] MEDS: ALBUT/IPRATROP 3MG/0.5MG NEB 3 ML VIAL NEB SCH (19:48)
[2024-07-06 07:43] LABS: Creatinine Clr Calc Pharmacy 68.4 ml/min
--- NOTE | 2024-07-06 11:13 | Discharge Summary ---
Date of Service July 06, 2024 Admission HPI Per Admitting Provider This is a pleasant 73-year-old male who was in the ER approximately a week ago. Diagnosed with pneumonia. Started on Augmentin and doxycycline. He has not improved in fact been getting worse. Saw his PCP today with increasing shortness of breath and productive cough. He presented the ER today for further evaluation and treatment. Laboratory studies showed a white count of 16,000. Other labs are fairly unremarkable. Respiratory viral bio fire panel was negative. Chest x-ray showed multifocal pneumonia. Course emergency department she is IV vancomycin IV cefepime. We are notified to meet the patient further evaluation and treatment for his community-acquired pneumonia with failed outpatient oral antibiotic treatment. Admission Exam (Per Admitting) Constitutional The patient is awake, alert and oriented 3, well developed and well nourished, normocephalic and atraumatic, lying in bed and in no acute distress. HEENT--PERRL, EOMI, mucous membranes and oropharynx mildly dry Neck--supple. No JVD. No bruits. Thyroid normal, trachea midline, no adenopathy. Heart--normal S1 and S2. No murmurs, rubs or gallops. Lungs--clear bilaterally, no respiratory distress, no accessory muscle use. Abdomen--normal bowel sounds and soft. Extremities--no cyanosis or clubbing. No edema. Dermatologic--normal skin turgor, normal color, no abnormal lymph nodes, no rash. Neurologic--cranial nerves II through XII grossly intact. Rheumatologic--normal range of motion. Psychiatric--normal affect. Discharge Data Consultations 07/02/24 20:09 ED Decision to Admit Stat Hospital Course (1) Pneumonia: 1. Bilateral multifocal pneumonia by chest x-ray. Patient presents with worsening SOB and cough, Failed outpatient antibiotic treatment with doxycycline and Augmentin. Sputum cultures ordered. Noncontrast CT of the chest CT shows extensive bilateral pulmonary infiltrates, worse on the right side MRSA nares negative, will stop vancomycin was on cefepime and Doxycycline patient clinically much improved Continue Nebulizer treatments. Respiratory bio fire respiratory viral panel was negative. Discharge home on PO Cefdinir 300mg BID for 5 days 2. Hypoxemia. Due to multifocal PNA Now resolved, saturating well on room air chronic conditions: 3. BPH. Continue home medication. 5. Erectile dysfunction by history. 6. Borderline hypertension 7. GERD by history. 8. History of presbycusis. Stable. Plan: d/c home Coding Level of Care Code 18511 INP/OBS DISCH >30 MIN Diagnoses Pneumonia J18.9 Time Spent (min) 35
== END 2024-07-06 12:17 | disposition home or self-care (01) | DRG 195 ==
LOC: ED 15:55 → EDINP 20:40 → SUATTDRO 20:40 → 2N 07-03 01:27